=== PATIENT | male | born 1995 | race African-American/Black ===

== ENCOUNTER 2016-06-04 20:33 | Emergency (ER) | payer SELFPAY ==
[~2016-06-04] VITALS: Ht 188 cm; Wt 68.0 kg
[~2016-06-04 20:33] MED LIST: MOBI15TA PO
[2016-06-04 20:35] VITALS: BP 106/55; PULSE 87; RESP 16; TEMP 98.5; O2SAT 98
== END 2016-06-04 22:30 | disposition left against medical advice (07) ==
LOC: NED 20:33
DX: R10.9 Unspecified abdominal pain (principal)
CPT/HCPCS: 99281

== ENCOUNTER 2016-06-08 19:21 | Emergency (ER) | payer OTHER ==
[~2016-06-08] VITALS: Ht 188 cm; Wt 65.0 kg
[2016-06-08] MEDS ORDERED: ACETAMINOPHEN 325 MG TAB PO ONE (19:30)
[2016-06-08 19:31] VITALS: BP 137/80; PULSE 75; RESP 16; TEMP 98.7; O2SAT 100
--- NOTE | 2016-06-08 20:00 | RADRPT ---
EXAM DATE/TIME: 06/08/2016 19:43 [facility] COMPARISON: KNEE LEFT COMPLETE (4VWS), April 13, 2016, 4:40. INDICATIONS : Left knee pain MEDICAL HISTORY : None. SURGICAL HISTORY : None. ENCOUNTER: Initial ACUITY: 1 day PAIN SCORE: 10/10 LOCATION: Left knee FINDINGS: There appears to be a small bony fragment seen adjacent to the posterior aspect of the medial tibial plateau. This could be a small avulsion fracture at this region. The knee joint is normally aligned . There is a mild joint effusion. CONCLUSION: Small curvilinear bony density seen adjacent to the posteromedial aspect of the proximal tibia which may represent a small avulsion fracture. Ed Apple MD on June 08, 2016 at 19:53 Board Certified Radiologist. This report was verified electronically.
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
== END 2016-06-08 21:20 | disposition home or self-care (01) ==
LOC: NEPA 19:21
DX: S82.102A Unspecified fracture of upper end of left tibia, initial encounter for closed fracture (principal); F17.210 Nicotine dependence, cigarettes, uncomplicated; V03.99XA Pedestrian with other conveyance injured in collision with car, pick-up truck or van, unspecified whether traffic or nontraffic accident, initial encounter; Y99.8 Other external cause status
CPT/HCPCS: 72125; 73564; 99284; E0113